=== PATIENT | male | born 1960 | race Caucasian/White ===

== ENCOUNTER 2017-07-25 11:39 | Inpatient (IN) | payer BC ==
[~2017-07-25] VITALS: Ht 167.6 cm; Wt 103.9 kg
[2017-07-25 12:16] LABS: BASOPHILS # (AUTO) 0.1 K/uL (0.0-8.0); BASOPHILS % (AUTO) 1.4 % (0.0-2.0); EOSINOPHILS # (AUTO) 0.3 K/uL (0.0-0.7); HEMATOCRIT 42.9 % (36.7-47.1); HEMOGLOBIN 14.4 g/dL (12.5-16.3); LYMPHOCYTES # (AUTO) 1.5 K/uL (20.0-40.0); MEAN CORPUSCULAR HEMOGLOBIN 30.5 uug (23.8-33.4); MEAN CORPUSCULAR HGB CONC 34 g/dL (32.5-36.3); MEAN CORPUSCULAR VOLUME 90.7 fL (73.0-96.2); MONOCYTES # (AUTO) 0.7 K/uL (2.0-10.0); MONOCYTES % (AUTO) 8.9 % (0.0-11.0); NEUTROPHILS % (AUTO) 65.7 % (38.5-71.5); PLATELET COUNT (AUTO) 265 K/uL (152-348); RED BLOOD CELL COUNT(AUTO) 4.73 MIL/uL (4.06-5.63); WHITE BLOOD COUNT (AUTO) 7.7 K/uL (3.6-10.2)
--- NOTE | 2017-07-25 12:24 | NUR ---
PT IS IN ROOM #1A. DR MILNER EVALUATED THE PT.
[2017-07-25 12:31] LABS: BILIRUBIN,DIRECT 0.1 mg/dL (0.0-0.2); BILIRUBIN,TOTAL 0.6 mg/dL (0.2-1.0); TOTAL PROTEIN, SERUM 7.1 g/dL (6.4-8.2)
[2017-07-25] MEDS ORDERED: ASPIRIN 81 MG TAB.CHEW ONE (13:15)
[2017-07-25] MEDS ORDERED: NITROGLYCERIN OINT 1 GM PACKET TP ONE ×2 (13:15→13:16)
[2017-07-25] MEDS ORDERED: ASPIRIN 81 MG TAB.CHEW PO ONE (13:15)
[2017-07-25] MEDS ORDERED: Z GUARD REMEDY PASTE 57 GM TUBE TOP PRN (13:45)
[2017-07-25] MEDS ORDERED: METOPROLOL TARTRATE 50 MG TABLET PO SCH (13:45)
[2017-07-25] MEDS ORDERED: HYDROCODONE/APAP 5-325MG TABLET PO PRN (13:45)
[2017-07-25] MEDS ORDERED: MORPHINE SULFATE 2 MG/1 ML DISP.SYRIN IV PRN (13:45)
[2017-07-25] MEDS ORDERED: MAGNESIUM HYDROXIDE 30 ML LIQUID UDC PO PRN (13:45)
[2017-07-25] MEDS ORDERED: ONDANSETRON 4 MG/2 ML VIAL IV PRN (13:45)
--- NOTE | 2017-07-25 13:45 | NUR ---
Per pt to be admitted to tele, SBAR report given to Laxmi COTE. Pt is resting with NAD noted.
[2017-07-25] MEDS ORDERED: hydrALAZINE HCL 20 MG/1 ML VIAL IV PRN (14:00)
--- NOTE | 2017-07-25 14:02 | NUR ---
PT WAS TRANSFERD TO [facility] ROOM #227. REPORT WAS GIVEN TO KERA IRBY.
[2017-07-25] MEDS ORDERED: MORPHINE SULFATE 4 MG/1 ML DISP.SYRIN IV PRN (14:30)
--- NOTE | 2017-07-25 14:35 | NUR ---
RECIEVED PATIENT FROM ER AWAKE ALERT COOPERATE WELL VS TAKEN STABLE NO SOB OR CHEST PAIN SAFETY MEASURE PROVIDED CALL LIGHT IN REACH AND REMIND TO USE WHEN NEEDED FAMILY AT BEDSIDE
[2017-07-25 14:59] VITALS: BP 139/89
[2017-07-25 16:00] VITALS: BP 135/94
[2017-07-25] MEDS: LOSARTAN POTASSIUM 25 MG TABLET PO SCH (16:15)
[2017-07-25] MEDS: METOPROLOL TARTRATE 25 MG TABLET PO SCH ×2 (16:16→20:12)
--- NOTE | 2017-07-25 17:00 | NUR ---
STABLE HEMODYNAMIC STATUS PAIN UNDER CONTROL NO ACUTE DISTRESS EAT WELL SAFETY MEASURE PROVIDED CALL LIGHT IN REACH
[2017-07-25] MEDS: ACETAMINOPHEN 325 MG TABLET PO PRN (18:47)
[2017-07-25 20:00] VITALS: BP 128/84
--- NOTE | 2017-07-25 20:12 | NUR ---
lopressor for 2100 held, too close from previous administration.
--- NOTE | 2017-07-25 20:53 | NUR ---
RECEIVED PATIENT IN HIS ROOM, RESTING, NO SOB NO CHEST, RYTHM IS SINUS RYTHM , NO COMPLAIN OF PAIN AT THIS TIME, CALL LIGHT WITHIN REACH.
[2017-07-25] MEDS: NITROGLYCERIN OINT 1 GM PACKET TP SCH (21:59)
[2017-07-26] VITALS: BP 141/90
[2017-07-26 04:00] VITALS: BP 143/87
[2017-07-26] MEDS: ACETAMINOPHEN 325 MG TABLET PO PRN (05:31)
[2017-07-26] MEDS: NITROGLYCERIN OINT 1 GM PACKET TP SCH ×2 (06:00→13:53)
--- NOTE | 2017-07-26 06:23 | NUR ---
PATIENT SLEPT MOST OF THE NIGHT, NO SOB NO CHEST PAIN NOTED, PATIENT REFUSED NITRO PATCH CLAIMING THE MEDS GIVE HIM HEADACHES, COMPLAIN OF HEADACHES, GIVEN PAIN MEDS WILL CONT TO MONITOR.
[2017-07-26 06:45] LABS: BASOPHILS # (AUTO) 0.1 K/uL (0.0-8.0); BASOPHILS % (AUTO) 0.8 % (0.0-2.0); EOSINOPHILS # (AUTO) 0.4 K/uL (0.0-0.7); HEMATOCRIT 45.5 % (36.7-47.1); HEMOGLOBIN 15.4 g/dL (12.5-16.3); LYMPHOCYTES # (AUTO) 1.5 K/uL (20.0-40.0); LYMPHOCYTES % (AUTO) 16.9 % (20.5-51.5); MEAN CORPUSCULAR HEMOGLOBIN 30.8 uug (23.8-33.4); MEAN CORPUSCULAR HGB CONC 34 g/dL (32.5-36.3); MONOCYTES # (AUTO) 0.9 K/uL (2.0-10.0); MONOCYTES % (AUTO) 10.8 % (0.0-11.0); NEUTROPHILS # (AUTO) 5.8 K/uL (1.8-8.9); NEUTROPHILS % (AUTO) 66.5 % (38.5-71.5); PLATELET COUNT (AUTO) 268 K/uL (152-348); WHITE BLOOD COUNT (AUTO) 8.7 K/uL (3.6-10.2)
[2017-07-26 06:51] LABS: CREATININE 0.7 mg/dL (0.6-1.3); MAGNESIUM 2.1 mg/dL (1.8-2.4); POTASSIUM 3.8 mmol/L (3.5-5.1)
[2017-07-26] MEDS: METOPROLOL TARTRATE 25 MG TABLET PO SCH (08:24)
[2017-07-26] MEDS: LOSARTAN POTASSIUM 25 MG TABLET PO SCH (08:24)
[2017-07-26] MEDS ORDERED: ASPIRIN EC 81 MG TABLET.DR PO SCH (09:00)
[2017-07-26 11:48] VITALS: BP 135/89
[2017-07-26 13:53] VITALS: BP_SYST 135
--- NOTE | 2017-07-26 14:00 | NUR ---
Patient refused nitroglycerin patch, no c/o of chest pain. Discussed risk/benefits of refusing medications, pt verbalized understanding.
--- NOTE | 2017-07-26 15:09 | NUR ---
Patient discharged to home. Discharge papers/instructions/teaching provided, patient verbalized understanding. Patient left 1450 from the unit, accompanied by friend, refused to be wheeled out of the unit, preferred to walk. Patient is in no distress. IV access and ID band removed. Addendum: 07/26/17 at 1539 by JUANA BARROS RN Add: Tele monitor removed
== END 2017-07-26 14:43 | disposition home or self-care (01) | DRG 313 ==
LOC: ER 11:39 → TELE 14:20
PROVIDERS: ADMIT Internal Medicine; ATTEND Internal Medicine
DX: R07.89 Other chest pain (principal); E66.8 Other obesity; Z68.37 Body mass index [BMI] 37.0-37.9, adult; I10 Essential (primary) hypertension
CPT/HCPCS: 36415; 70030-TC; 71045; 83735; 84100; 85025; 85730; 93005; 93307; A4663